=== PATIENT | female | born 1990 | race American Indian/Alaskan Native ===

== ENCOUNTER → 2017-06-06 21:40 | Emergency (ER) | payer OTHER | END | disposition left against medical advice (07) | LOC: ED 21:40 | DX: M79.674 Pain in right toe(s) (principal); Z53.21 Procedure and treatment not carried out due to patient leaving prior to being seen by health care provider ==

== ENCOUNTER 2017-10-13 14:25 | Emergency (ER) | payer SELFPAY ==
[2017-10-13 14:35] VITALS: BP 115/70
--- NOTE | 2017-10-13 18:33 | Emergency Department Report ---
ED Extremity Problem HPI - General Chief complaint: Extremity Injury, Lower Stated complaint: SWOLLEN FOOT Time Seen by Provider: 10/13/17 18:24 Source: patient Mode of arrival: Ambulatory Limitations: No Limitations - History of Present Illness Initial comments: Patient is a 27-year-old female who is presenting with left foot pain. Patient states that the top left foot is swollen and painful for approximately 2-3 days. Patient denies any trauma. Patient states the pain is 8 out of 10 in severity her source was standing or she touches. Foot. - Related Data Previous Rx's Medication Instructions Recorded Last Taken Type Ibuprofen [Motrin] 600 mg PO Q8H PRN #20 tablet 10/13/17 Unknown Rx Allergies Allergy/AdvReac Type Severity Reaction Status Date / Time No Known Allergies Allergy Unverified 02/19/15 20:36 ED Review of Systems ROS: Stated complaint: SWOLLEN FOOT Other details as noted in HPI Comment: All other systems reviewed and negative ED Past Medical Hx - Past Medical History Previous Medical History?: No - Social History Smoking Status: Current Every Day Smoker - Medications Home Medications: Home Medications Medication Instructions Recorded Confirmed Last Taken Type Ibuprofen [Motrin] 600 mg PO Q8H PRN #20 tablet 10/13/17 Unknown Rx ED Physical Exam - General Limitations: No Limitations General appearance: alert, in no apparent distress - Head Head exam: Present: atraumatic, normocephalic - Eye Eye exam: Present: normal appearance - ENT ENT exam: Present: mucous membranes moist - Neck Neck exam: Present: normal inspection - Respiratory Respiratory exam: Present: normal lung sounds bilaterally. Absent: respiratory distress - Cardiovascular Cardiovascular Exam: Present: regular rate, normal rhythm. Absent: systolic murmur, diastolic murmur, rubs, gallop - GI/Abdominal GI/Abdominal exam: Present: soft, normal bowel sounds - Extremities Exam Extremities exam: Present: normal inspection, tenderness (vision has a small ganglion cyst on the dorsum of the left foot. She has full range of motion to all toes.) - Back Exam Back exam: Present: normal inspection - Neurological Exam Neurological exam: Present: alert, oriented X3 - Psychiatric Psychiatric exam: Present: normal affect, normal mood - Skin Skin exam: Present: warm, dry, intact, normal color. Absent: rash ED Course Vital Signs 10/13/17 14:31 Temperature 98.2 F Pulse Rate 80 Respiratory 16 Rate Blood Pressure 115/70 O2 Sat by Pulse 98 Oximetry Critical care attestation.: If time is entered above; I have spent that time in minutes in the direct care of this critically ill patient, excluding procedure time. ED Disposition Clinical Impression: Ganglion cyst Disposition: DC-01 TO HOME OR SELFCARE Is pt being admited?: No Does the pt Need Aspirin: No Condition: Stable Additional Instructions: What is a ganglion cyst? A ganglion cyst is a small sac of fluid that forms over a joint or tendon. Common places for a ganglion cyst are: Wrist Finger joints Top of the foot Ganglion cysts can also form on the knee, shoulder, back, or other parts of the body. What are the symptoms of a ganglion cyst? The symptoms include: Swelling Pain Trouble moving a joint Is there a test for ganglion cyst? Yes. If you have a bump that looks like a ganglion cyst, the doctor or nurse will probably be able to tell what it is just by doing an exam. He or she might also shine a powerful light into it. If light passes through, that means the bump is filled with fluid. This tells the doctor it could be a ganglion cyst. If the doctor or nurse is not sure what is causing your symptoms, he or she might order an imaging test such as an MRI or an ultrasound. Imaging tests create pictures of the inside of the body. How is a ganglion cyst treated? Most ganglion cysts go away without any treatment. Your doctor or nurse might wait to see if the cyst goes away on its own. If you do get treatment, the doctor or nurse might: Drain the cyst Doctors can stick a needle into a cyst and take out the fluid. Sometimes they also inject a medicine into the cyst that can help keep fluid from coming back. Do surgery The doctor might take out the cyst and fix any damaged tissue nearby. What if my symptoms do not get better? If your symptoms do not get better, talk with your doctor or nurse. If you have been waiting to see if the ganglion cyst goes away without treatment, you might need treatment. Referrals: PRIMARY CARE, [Primary Care Provider] - 3-5 Days Forms: Work/School Release Form(ED)
== END 2017-10-13 18:36 | disposition home or self-care (01) ==
LOC: ED 14:25
DX: M67.472 Ganglion, left ankle and foot (principal); F17.200 Nicotine dependence, unspecified, uncomplicated
CPT/HCPCS: 99282